=== PATIENT | female | born 1970 | race Hispanic/Latino ===

== ENCOUNTER 2018-11-02 14:46 | Emergency (ER) | payer OTHER ==
[~2018-11-02] VITALS: Ht 154.9 cm; Wt 68.0 kg
--- OUTSIDE RECORDS SUMMARY | 2018-11-02 14:48 | XMS REPORT | Clinical Summary ---
Author Author Enrique [facility] Organization [facility] Address Unknown Phone Unavailable Care Team Providers Care Sales And Training Specialist Name Role Phone Asked, No Pcp PCP Unavailable Allergies Comments Active Allergy Reactions Severity Noted Date Diphenhydramine Hcl 11/28/2017 Lisinopril 11/28/2017 Medications End Date Status Medication Sig Dispensed Refills Start Date Active methyldopa (ALDOMET) 250 Take 250 mg 0 MG tablet by mouth. Active labetalol (NORMODYNE) 200 Take 200 mg 0 MG tablet by mouth. Active triamterene-hydrochloroth Take 1 tablet 0 iazid (MAXZIDE-25) by mouth. 37.5-25 mg per tablet Active fluticasone (FLONASE) 50 1 spray into 0 mcg/actuation nasal spray each nostril. Active albuterol (PROAIR Take 2 puffs 0 HFA,PROVENTIL by mouth. 6 HFA,VENTOLIN HFA) 90 mcg/actuation inhaler Active azelastine (ASTELIN) 137 1 spray into 0 mcg (0.1 %) nasal spray each nostril. Active Problems Not on file Encounters Care Team Description Date Type Specialty Hattie Gonsalez MD Mixed stress and urge urinary incontinence (Primary Dx); Perimenopause; Cystocele, midline 11/28/2017 Office Visit Urogynecology after 11/01/2017 Family History Medical History Relation Name Comments No Known Problems Father No Known Problems Mother Relation Name Status Comments Father Alive Mother Alive Social History Date Tobacco Use Types Packs/Day Years Used Never Smoker Smokeless Tobacco: Never Used Drinks/Week oz/Week Comments Alcohol Use No Sex Assigned at Date Recorded Not on file Industry Job Start Date Occupation Not on file Not on file Not on file Travel End Travel History Travel Start No recent travel history available. Last Filed Vital Signs Reading Time Taken Comments Vital Sign 125/61 11/28/2017 10:28 AM CDT Blood Pressure 61 11/28/2017 10:28 AM CDT Pulse - - Temperature - - Respiratory Rate - - Oxygen Saturation - - Inhaled Oxygen Concentration 68 kg (150 lb) 11/28/2017 10:28 AM CDT Weight 154.9 cm (5' 1") 11/28/2017 10:28 AM CDT Height 28.34 11/28/2017 10:28 AM CDT Body Mass Index Plan of Treatment Health Maintenance Due Date Last Done Comments CERVICAL CANCER SCREENING 1990 INFLUENZA VACCINE 09/11/2018 11/01/2016, 02/22/2016, 11/03/2013 Procedures Comments Procedure Name Priority Date/Time Associated Diagnosis POC URINALYSIS DIPSTICK Routine 11/28/2017 Mixed stress and urge 10:59 AM CDT urinary incontinence MEASURE POST VOID Routine 11/28/2017 Mixed stress and urge RESIDUAL urinary incontinence after 11/01/2017 Results * POC urinalysis dipstick (11/28/2017 10:59 AM CDT) Color urine, Yellow POC Clarity urine, Clear POC Glucose urine, Negative Negative POC Bilirubin Negative Negative urine, POC Ketones urine, Negative Negative POC Specific >/=1.030 1.005 - 1.030 gravity urine, POC Blood urine, Moderate (A) Negative POC pH urine, POC 6.0 5.0, 5.5, 6.0, 6.5, 7.0, 7.5, 8.0, 8.5 Protein urine, Trace (A) Negative POC Urobilinogen <2.0 <2.0 urine, POC Nitrite urine, Negative Negative POC Leukocyte Negative Negative esterase urine, POC Specimen Urine * Measure post void residual (11/28/2017) Total volume, 0 ml urine Specimen after 11/01/2017 Insurance Type Payer Benefit Subscriber ID Effective Phone Address Plan / Dates Group HMO/PPO [facility] xxxxxxxxx [id number] THCARE resent CHOICE/CHO ICE + Advance Directives For more information, please contact: [phone] Patient Tools Administrator Explanation Type Date Recorded Advance Directives, Living Will and Medical Power of Hand Packer
--- OUTSIDE RECORDS SUMMARY | 2018-11-02 14:49 | XMS REPORT | Clinical Summary ---
Author Author KRISTOF[facility] Address Unknown Phone Unavailable Care Team Providers Care Keypunch Operators Supervisor Name Role Phone Vickie Montanez PCP Unavailable Allergies Comments Active Allergy Reactions Severity Noted Date numbness Diphenhydramine-Zinc Other (See 02/03/2014 Acetate Comments) cough Lisinopril Other (See 12/11/2017 Comments) Medications End Date Status Medication Sig Dispensed Refills Start Date Active methyldopa (ALDOMET) 250 Take 250 mg 0 MG tablet by mouth 3 (three) times daily. Active hydrOXYzine (VISTARIL) 25 Take 25 mg by 0 MG capsule mouth 3 (three) times daily as needed for Itching. Takes for anxiety Active labetalol (NORMODYNE) 200 Take 200 mg 0 MG tablet by mouth 2 (two) times daily. Active triamterene-hydrochloroth Take 1 tablet 0 iazide (MAXZIDE-25) by mouth 37.5-25 mg per tablet daily. Active fluticasone (FLONASE) 50 1 spray by 0 mcg/actuation nasal spray Nasal route daily. Active methocarbamol (ROBAXIN) Take 1-2 tab 30 tablet 0 500 MG tablet po q4 hours 6 prn pain/spasm. Active Problems Not on file Encounters Care Team Description Date Type Specialty Jovanni Calhoun DO Acute chest pain (Primary Dx); Essential hypertension; Hypokalemia; Dyspnea, unspecified type 12/11/2017 Emergency Emergency Medicine 12/11/2017 Orders Only General Internal Medicine 12/11/2017 Travel after 11/01/2017 Family History Medical History Relation Name Comments Unremarkable Father Unremarkable Mother Relation Name Status Comments Father Mother Social History Date Tobacco Use Types Packs/Day Years Used Never Smoker Alcohol Use Drinks/Week oz/Week Comments Yes occassionally Sex Assigned at Date Recorded Not on file Industry Job Start Date Occupation Not on file Not on file Not on file Travel End Travel History Travel Start No recent travel history available. Last Filed Vital Signs Time Taken Vital Sign Reading 12/11/2017 6:05 PM CDT Blood Pressure 131/68 12/11/2017 6:05 PM CDT Pulse 61 12/11/2017 2:46 PM CDT Temperature 36.7 C (98 F) 12/11/2017 6:05 PM CDT Respiratory Rate 16 12/11/2017 6:05 PM CDT Oxygen Saturation 95% - Inhaled Oxygen - Concentration 12/11/2017 2:46 PM CDT Weight 67.8 kg (149 lb 6 oz) - Height - 12/11/2017 2:46 PM CDT Body Mass Index 28.22 Plan of Treatment Not on file Procedures Comments Procedure Name Priority Date/Time Associated Diagnosis RHYTHM STRIP - SCAN 12/12/2017 2:01 PM CDT RAPID TROPONIN I STAT 12/11/2017 5:42 PM CDT RAPID CK-MB STAT 12/11/2017 5:42 PM CDT SCREEN, URINE STAT 12/11/2017 3:46 PM CDT ED ECG INTERPRETATION Routine 12/11/2017 3:13 PM CDT XR CHEST PA OR AP 1 VIEW STAT 12/11/2017 IN DEPT. 3:02 PM CDT CBC W/PLT COUNT & AUTO STAT 12/11/2017 DIFFERENTIAL 3:00 PM CDT D-DIMER STAT 12/11/2017 3:00 PM CDT CBC W/PLT COUNT & AUTO STAT 12/11/2017 DIFFERENTIAL 3:00 PM CDT RAPID TROPONIN I STAT 12/11/2017 2:59 PM CDT B-TYPE NATRIURETIC FACTOR STAT 12/11/2017 (BNP) 2:59 PM CDT RAPID CK-MB STAT 12/11/2017 2:59 PM CDT PT/APTT STAT 12/11/2017 2:59 PM CDT MAGNESIUM STAT 12/11/2017 2:59 PM CDT BASIC METABOLIC PANEL (7) STAT 12/11/2017 2:59 PM CDT ECG 12-LEAD Routine 12/11/2017 2:48 PM CDT Procedure Note - Interface, External Ris In - 12/11/2017 9:14 PM CDT Ventricula r Rate 69 BPM Atrial Rate 69 BPM P-R Interval 152 ms QRS Duration 90 ms Q-T Interval 420 ms QTC Calculatio n(Bazett) 450 ms P [place] 46 degrees R [place] 46 degrees T [place] 44 degrees Normal sinus rhythm Nonspecifi c T wave abnormalit y Abnormal ECG When compared with ECG of 6 02:48, Nonspecifi c T wave abnormalit y, worse in Anterior leads ECG 12-LEAD STAT 12/11/2017 2:48 PM CDT after 11/01/2017 Results * RHYTHM STRIP - SCAN (12/12/2017 2:01 PM CDT) Narrative Performed At * Rapid Troponin I ([facility] Only) (12/11/2017 5:42 PM CDT) Only the most recent of 2 results within the time period is included. Rapid Troponin I <0.05 <0.05 ng/mL [facility], [facility], [facility] Specimen Blood Performing Organization Address [facility] Phone Number [facility] [address] [place] [address] [facility], [facility] [place], [facility] * Rapid CK-MB ([facility] Only) (12/11/2017 5:42 PM CDT) Only the most recent of 2 results within the time period is included. Rapid CKMB 1.0 0.0 - 4.3 ng/mL [facility], [facility] [place], [facility] Specimen Blood Performing Organization Address [facility]/Zipcode Phone Number KRISTOFER OSWALD [address] [place] [address] [facility], [facility], [facility] * Screen, urine (12/11/2017 3:46 PM CDT) Preg Test, Ur Negative [facility] [place] Specimen Urine Performing Organization Address City/[facility] Phone Number KRISTOFER OSWALD [address] [place] [address] [facility], [facility] [place], [facility] * ECG/EKG Interpretation (12/11/2017 3:13 PM CDT) Narrative Performed At Jovanni Calhoun DO 12/11/20176:21 PM ECG/EKG Interpretation Date/Time: 12/11/2017 3:15 PM Performed by: Jovanni Calhoun DO Authorized by: Jovanni Calhoun DO The ECG was interpreted by ED physician. This ECG was not compared with previous ECG(s).The ECG is interpreted as sinus rhythm. Rate is normal rate. Heart rate is 69 BPM. Abnormal conduction noted: non-specific intraventricular conduction delay. [place] is normal. Clinical Impression: non-specific ECGECG reviewed and does not meet STEMI criteria. Patient tolerance: Patient tolerated the procedure well with no immediate complications * XR chest PA or AP 1 view in dept (12/11/2017 3:02 PM CDT) Specimen Narrative Performed At FINAL REPORT [facility] EXAM: Frontal chest radiograph HISTORY PROVIDED: Chest pain COMPARISON: 06/19/2015 IMPRESSION: The lungs are clear without focal consolidation. No pneumothorax or significant pleural fluid. The cardiomediastinal silhouette is within normal limits. No acute osseous abnormality. Signed: Hany Edwards MD Report Verified Date/Time:12/11/2017 15:28:29 Reading Location: [facility] Mammo Reading Room Procedure Note Interface, External Ris In - 12/11/2017 3:30 PM CDT FINAL REPORT EXAM: Frontal chest radiograph HISTORY PROVIDED: Chest pain COMPARISON: 06/19/2015 IMPRESSION: The lungs are clear without focal consolidation. No pneumothorax or significant pleural fluid. The cardiomediastinal silhouette is within normal limits. No acute osseous abnormality. Signed: Hany Edwards MD Report Verified Date/Time: 12/11/2017 15:28:29 Reading Location: [facility] Mammo Reading Room Performing Organization Address City/State/Zipcode Phone Number GE RIS * CBC with platelet count + automated diff (12/11/2017 3:00 PM CDT) WBC 6.9 4.0 - 10.0 K/L [facility], [facility] [place], [facility] RBC 4.01 4.00 - 5.00 M/L [facility], [facility] Hemoglobin 12.6 12.0 - 15.0 GM/DL [facility], [facility] Hematocrit 36.8 36.0 - 45.0 % [facility] [place] MCV 91.9 82.0 - 99.0 fL [facility] [place] MCH 31.4 27.0 - 33.0 pg [facility] [place] MCHC 34.2 32.0 - 36.0 GM/DL [facility] [place] RDW 11.7 10.3 - 14.2 % [facility] [place] Platelets 293 150 - 430 K/CU MM [facility], [facility] MPV 8.2 6.5 - 10.5 fL [facility] [place] % Neutros 60 % [facility] % Lymphs 30 % [facility] % Monos 6 % [facility], [facility] [place] % Eos 3 % [facility], [facility] [place] % Baso 1 % [facility], [facility] [place], [facility] # Neutros 4.12 1.80 - 8.00 K/L [facility], [facility], [facility] # Lymphs 2.08 1.48 - 4.50 K/L [facility], [facility] [place], [facility] # Monos 0.44 0.00 - 1.30 K/L [facility], [facility] [place], [facility] # Eos 0.21 0.00 - 0.50 K/L [facility], [facility] [place], [facility] # Baso 0.03 0.00 - 0.20 K/L [facility], [facility] [place], [facility] Specimen Blood Performing Organization Address [facility] Cent[facility]ode Phone Number [place] [phone] [facility] [place], [facility] * D-dimer, quantitative (12/11/2017 3:00 PM CDT) D-Dimer, Quant <0.19 <0.50 MG/L FEU [facility], [facility] [place], [facility] Specimen Blood Narrative Performed At REGARDING D-DIMER RESULTS: Results of this D-Dimer test should always be [facility] interpreted in conjunction with the patient's medical history, clinical [facility] MEDICAL presentation and other findings. DVT clinical diagnosis should not be based on [place] the results of [facility] D-Dimer alone. [facility] [place] Performing Organization Address City/[facility] Cent[facility]ode Phone Number [address] [address] [facility], [facility] [place], [facility] * PT/PTT (12/11/2017 2:59 PM CDT) Protime 10.7 9.8 - 12.0 seconds [facility] [place] INR 1.0 <=5.9 [facility] PTT 25.1 (L) 25.8 - 34.5 seconds [facility] Specimen Blood Narrative Performed At RECOMMENDED COUMADIN/WARFARIN INR THERAPY RANGES [facility] STANDARD DOSE: 2.0 - 3.0 Includes: PROPHYLAXIS for venous thrombosis, [facility] systemic embolization; TREATMENT for venous thrombosis and/or pulmonary embolus. [facility] HIGH RISK: Target INR is 2.5-3.5 for patients with mechanical heart valves. EMERGENCY CENTER, [facility] Performing Organization Address [facility] Phone Number [address] [address] [facility] [place] * B-type Natriuretic Factor (BNP) (12/11/2017 2:59 PM CDT) BNP <5 0 - 100 pg/mL [facility] Specimen Blood Performing Organization Address [facility] Phone Number [address] [address] [facility] [place] * Magnesium (12/11/2017 2:59 PM CDT) Magnesium 2.1 1.5 - 3.0 mg/dL [facility] [place] Specimen Blood Performing Organization Address [facility] Phone Number [address] [address] [facility], [facility] [place], [facility] * Basic Metabolic Panel (12/11/2017 2:59 PM CDT) Sodium 141 135 - 148 meq/L [facility], [facility] [place] Potassium 3.3 (L) 3.6 - 5.5 meq/L [facility] Chloride 100 98 - 106 meq/L [facility] CO2 29 24 - 32 meq/L [facility], [facility], [facility] BUN 15 10 - 26 mg/dL [facility] Creatinine 0.65 0.50 - 1.20 mg/dL [facility] Glucose 119 (H) 70 - 110 mg/dL [facility] Calcium 9.3 8.5 - 10.5 mg/dL [facility], [facility] [place] EGFR 97Comment: ESTIMATED GFR IS mL/min/1.73 sq m [facility] NOT ACCURATE CREATININE [facility] CLEARANCE IN [facility] GLOMERULAR FILTRATION RATE. EMERGENCY CENTER, ESTIMATED GFR IS NOT [facility] APPLICABLE FOR DIALYSIS PATIENTS. Specimen Blood Performing Organization Address City/State/Zipcode Phone Number [facility] [address] [place] [address] [facility] [place] * ECG 12 lead (12/11/2017 2:48 PM CDT) Specimen Narrative Performed At Ventricular Rate 69 BPM GE MUSE Atrial Rate 69 BPM P-R Interval 152 ms QRS Duration 90 ms Q-T Interval 420 ms QTC Calculation(Bazett) 450 ms P [place] 46 degrees R [place] 46 degrees T [place] 44 degrees Normal sinus rhythm Nonspecific T wave abnormality Abnormal ECG When compared with ECG of 19-JUN-2015 02:48, Nonspecific T wave abnormality, worse in Anterior leads Confirmed by MD JASON, KEYONNA Lucas ([id number]) on 12/12/2017 6:19:41 AM Procedure Note Interface, External Ris In - 12/12/2017 6:19 AM CDT Ventricular Rate 69 BPM Atrial Rate 69 BPM P-R Interval 152 ms QRS Duration 90 ms Q-T Interval 420 ms QTC Calculation(Bazett) 450 ms P [place] 46 degrees R [place] 46 degrees T [place] 44 degrees Normal sinus rhythm Nonspecific T wave abnormality Abnormal ECG When compared with ECG of 19-JUN-2015 02:48, Nonspecific T wave abnormality, worse in Anterior leads Confirmed by MD JASON, KEYONNA Lucas ([id number]) on 12/12/2017 6:19:41 AM Performing Organization Address City/State/Zipcode Phone Number GE MUSE after 11/01/2017 Insurance Payer Benefit Subscriber ID Type Phone Address Plan / Group [facility] H[facility]/POS CARE POS SELECT CHOICE
--- OUTSIDE RECORDS SUMMARY | 2018-11-02 14:49 | XMS REPORT | Summary of Care ---
Author Author [facility] Organization [facility] Address Unknown Phone Unavailable Care Team Providers Care Ice Maker Name Role Phone Rosalina Hutchinson MD PCP Reason for Visit * Reason Comments Pharyngitis Since Saturday Cough Encounter Details Care Team Description Date Type Department Desirae Salcido MD [address] [facility] [address] [place] [address] Pharyngitis (Since Saturday ); Cough 10/16/2018 Office Visit [facility] [address] [place] [address] Allergies Comments Active Allergy Reactions Severity Noted Date Allergy Relief 07/26/2014 cough Lisinopril 11/28/2015 documented as of this encounter (statuses as of 10/16/2018) Medications End Date Status Medication Sig Dispensed Refills Start Date Active azelastine (ASTELIN) 0.1 1 [place] by 0 % nasal spray Nasal route two times daily. Use in each nostril as directed Active triamterene-hydrochloroth TAKE 1 TABLET 90 Tab 3 iazide (MAXZIDE) 37.5-25 BY MOUTH 9 MG per tabletIndications: EVERY DAY Essential hypertension, benign Active labetalol (NORMODYNE) 200 TAKE 1 TABLET 180 Tab 1 MG tabletIndications: BY MOUTH 9 Essential hypertension TWICE DAILY Active albuterol 108 (90 base) Inhale 2 1 Inhaler 1 mcg/act Puffs by 9 inhalerIndications: Mild mouth every 4 intermittent asthma with hours as acute exacerbation needed for Wheezing. Active guaiFENesin-Codeine Take 10 mL by 180 mL 1 (GUAIFENESIN AC) 100-10 mouth 4 times 9 MG/5ML liquidIndications: daily as Viral URI with cough needed for Cough. 10/23/2018 Active amoxicillin (AMOXIL) 875 Take 1 Tab by 14 Tab 0 MG tabletIndications: mouth two 9 Viral URI with cough times daily for 7 days. 10/16/2018 Discontinued triamterene-hydrochloroth TAKE 1 TABLET 90 Tab 0 iazide (MAXZIDE) 37.5-25 BY MOUTH 8 MG per tablet EVERY DAY 10/16/2018 Discontinued labetalol (NORMODYNE) 200 TAKE 1 TABLET 180 Tab 0 MG tablet BY MOUTH 8 TWICE DAILY documented as of this encounter (statuses as of 10/16/2018) Active Problems Problem Noted Date Kidney stone 04/25/2018 NAFLD (nonalcoholic fatty liver disease) 01/28/2018 Urinary urgency 10/25/2017 Other fatigue 10/25/2017 Daytime sleepiness 12/22/2016 Last Assessment & Plan: Counseled on sleepiness, strategic naps and safety Non-restorative sleep 12/22/2016 Last Assessment & Plan: Benign paroxysmal positional vertigo 11/13/2016 Ear pressure, bilateral 11/13/2016 Overweight 11/10/2016 Last Assessment & Plan: Counseled on wt loss Sleep-disordered breathing 11/10/2016 Last Assessment & Plan: Pt with non diagnostic HST with obesity , hyepertension, daytime sleepiness, non restorative sleep Discussed with patient the pathophysiology of sleep apnea, and treatment options Pt not able to afford copay for sleep study would like to defer Advised inc hours of sleep, strategic naps, also wt loss Snoring 11/01/2016 Asthma due to seasonal allergies 12/16/2015 Prediabetes 12/14/2015 Overview: Couldn't tolerate Metformin, quit taking it 01/2016. History of gestational hypertension 09/23/2015 Stress at home 09/23/2015 Overview: Sees counselor regularly Nose obstruction 01/03/2013 Nasal septal deviation 11/11/2011 DISORDER, ANTERIOR PITUITARY NEC 09/22/2007 ASCUS PAP 08/21/2006 Overview: Normal paps since 2009 with negative HPV HYPERTENSION, ESSENTIAL 11/21/2004 documented as of this encounter (statuses as of 10/16/2018) Resolved Problems Problem Noted Date Resolved Date Allergic rhinitis, cause unspecified 11/11/2011 12/05/2011 Menses regular with excessive bleeding 05/24/2010 12/05/2011 examination or test, negative result 05/23/2010 12/05/2011 Vaginal discharge 01/16/2010 12/05/2011 Yeast infection involving the vagina and surrounding area 01/09/2010 12/05/2011 Gallstones 12/13/2009 05/18/2010 PELVIC PAIN 09/22/2007 04/20/2009 FAMILY HISTORY OF HEART DISEASE--MGF, MGM 09/16/2006 12/05/2011 FAMILY HISTORY OF STROKE--MGF 09/16/2006 12/05/2011 FAMILY HISTORY OF DIABETES--MGF, AUNT 09/16/2006 12/05/2011 COUGH, UNDIAGNOSED, CAUSE UNCLEAR 09/16/2006 04/20/2009 Female infertility 07/09/2006 12/05/2011 CHEST PAIN, ATYPICAL 06/19/2006 04/20/2009 HYPERCHOLESTEROLEMIA--LDL 145 HDL 49 TG 107 06/19/2006 12/05/2011 Bradycardia 06/19/2006 12/05/2011 ANXIETY STATE NOS 06/19/2006 04/20/2009 FAMILY HISTORY OF HYPERTENSION: 12/05/2011 documented as of this encounter (statuses as of 10/16/2018) Immunizations Name Administration Dates Next Due Influenza Quad-PF 11/01/2016 Influenza Quadrivalent 02/22/2016 3YRS+ Tdap 09/08/2013 documented as of this encounter Social History Date Tobacco Use Types Packs/Day Years Used Never Smoker Smokeless Tobacco: Never Used Drinks/Week oz/Week Comments Alcohol Use 0.0 Alcoholic Drinks/day: Socially Yes Sex Assigned at Date Recorded Not on file Industry Job Start Date Occupation Not on file Not on file Not on file Travel End Travel History Travel Start No recent travel history available. documented as of this encounter Last Filed Vital Signs Reading Time Taken Comments Vital Sign 135/90 10/16/2018 2:11 PM CDT Blood Pressure 81 10/16/2018 2:11 PM CDT Pulse 36.9 C (98.5 F) 10/16/2018 2:11 PM CDT Temperature 16 10/16/2018 2:11 PM CDT Respiratory Rate 96% 10/16/2018 2:11 PM CDT Oxygen Saturation - - Inhaled Oxygen Concentration 68.1 kg (150 lb 3.2 oz) 10/16/2018 2:11 PM CDT Weight 154.9 cm (5' 1") 10/16/2018 2:11 PM CDT Height 28.38 10/16/2018 2:11 PM CDT Body Mass Index documented in this encounter Patient Instructions * Patient Instructions* Desirae Salcido MD - 10/16/2018 1:50 PM CDT Prescription cough medicine: CHERATUSSIN (guaifenesin with codeine) Take one (1) teaspoon by mouth every 4 -6 hours for cough: DO NOT DRIVE WHILE US ING THIS MEDICINE This medicine can cause sedation, nausea and constipation. Make sure that you m easure each dose (don't drink it out of the bottle) and keep it in a safe place. IT IS A NARCOTIC (OPIOID). Do not leave it where children can find it. It is best tolerated if taken with a light snack. Don't take this with anything el se that can cause sedation (such as prescription pain relievers, anxiety medicin e, alcohol, muscle relaxants). Please use the inhaler as needed for cough or shortness of breath or wheeze. Hold the antibiotics and fill only if you have thick discolored mucus that is no t getting better. documented in this encounter Progress Notes * Desirae Salcdio MD - 10/16/2018 1:50 PM CDT Assessment and Plan Yessi was seen today for pharyngitis and cough. Diagnoses and all orders for this visit: Viral URI with cough - guaiFENesin-Codeine (GUAIFENESIN AC) 100-10 MG/5ML liquid; Take 10 mL by m outh 4 times daily as needed for Cough. HOLD RX AND FILL ONLY IF NEEDED (PERSISTENT thick discolored mucus ETC) - amoxicillin (AMOXIL) 875 MG tablet; Take 1 Tab by mouth two times daily fo r 7 days. Mild intermittent asthma with acute exacerbation - albuterol 108 (90 base) mcg/act inhaler; Inhale 2 Puffs by mouth every 4 h ours as needed for Wheezing. === Chief Complaint Patient presents with Pharyngitis Since Saturday Cough URI sx since 10.13.19 Has been using dagu-euh-fvoffme cough and cold meds with minmal improvement in s ymptoms \\ Hx asthma but no current use of beta agonist etc Dry cough, chills. Coricidin HBP helped the cough a bit Nose running despite the meds Everyone at home is ill Other sx include: chills, night sweats, nasal congestion, sore throat, cough, wh eezing , malaise DENIES: chest pain, hemoptysis, dyspnea , body aches Allergies Allergen Reactions Benadryl [Allergy Relief] Lisinopril cough albuterol 108 (90 base) mcg/act inhaler Inhale 2 Puffs by mouth every 4 hour s as needed for Wheezing. amoxicillin (AMOXIL) 875 MG tablet Take 1 Tab by mouth two times daily for 7 days. azelastine (ASTELIN) 0.1 % nasal spray 1 [place] by Nasal route two times marlon y. Use in each nostril as directed guaiFENesin-Codeine (GUAIFENESIN AC) 100-10 MG/5ML liquid Take 10 mL by mout h 4 times daily as needed for Cough. labetalol (NORMODYNE) 200 MG tablet TAKE 1 TABLET BY MOUTH TWICE DAILY triamterene-hydrochlorothiazide (MAXZIDE) 37.5-25 MG per tablet TAKE 1 TABLE T BY MOUTH EVERY DAY Physical Exam BP 135/90 | Pulse 81 | Temp 98.5 F (36.9 C) (Oral) | Resp 16 | Ht 5' 1" (1.549 m) | Wt 150 lb 3.2 oz (68.1 kg) | SpO2 96% | BMI 28.38 kg/m Body mass index is 28.38 kg/m. General: 48 y.o. female in no acute distress. HEENT: NCAT, EOMI, hearing intact, mouth - mucus membranes moist Nasal congestipon Skin of nares chapped and red Neck: Supple without lymphadenopathy CV: RR without murmur RESP: Normal respiratory rate. Normal resonance to percussion. Good air movement bilaterally Clear to auscultation w quiet breathing but end exp wheezes and dry cough on f orced exp Neuro: nonfocal Extremities: No edema documented in this encounter Plan of Treatment Health Maintenance Due Date Last Done Comments HIV SCREENING 06/18/1987 FLU VACCINE > 6 MONTHS 09/11/2018 04/25/2018 (Declined), 12/16/2017 (Declined), 11/01/2016, Additional history exists BMI FOLLOW UP PLAN 10/25/2018 10/25/2017 MAMMOGRAM EVERY 2 YEARS 04/21/2020 04/21/2018, 10/12/2016, 01/13/2015, Additional history exists CERVICAL CANCER SCREENING 02/11/2022 02/11/2017, 01/16/2010, 12/14/2008 5 YEAR FOLLOW UP TETANUS SHOT (ADULT) 03/14/2025 03/14/2015, 09/08/2013 documented as of this encounter Results Not on filedocumented in this encounter Visit Diagnoses Diagnosis Viral URI with cough - Primary Acute upper respiratory infections of unspecified site Mild intermittent asthma with acute exacerbation Unspecified asthma, with exacerbation documented in this encounter Insurance Type Payer Benefit Subscriber ID Effective Phone Address Plan / Dates Group PPO [facility] CHOICE/CHO xxxxxxxxx 2018-P [address] [place] [id number] PLUS/[facility] [id number] documented as of this encounter Advance Directives Patient Butcher Or Smallgoods Maker Explanation Type Date Recorded Advance Directives and Living Will Power of Director Of Business Operations
--- OUTSIDE RECORDS SUMMARY | 2018-11-02 14:49 | XMS REPORT ---
Author Author [facility] Address Unknown Phone Unavailable Care Team Providers Care Revenue Stamp Cutter Name Role Phone CARLITOS CALHOUN Unavailable Unavailable Problems This patient has no known problems. Allergies, Adverse Reactions, Alerts This patient has no known allergies or adverse reactions. Medications This patient has no known medications. Results Test Description Test Time Test Comments Text Results Atomic Results Result Comments RAPID CK-MB 2017-12-11 18:09:00 RAPID CKMB (BEAKER) (test jhxn=1384) 1.0 ng/mL 0.0-4.3 RAPID TROPONIN [id number] 18:09:00* Test Item Value Reference Range Comments RAPID TROPONIN I (BEAKER) (test uegt=8596) < ng/mL <0.05 SCREEN, [id number] 15:59:00* Test Item Value Reference Range Comments TEST URINE (BEAKER) (test nnum=123) Negative RAD, CHEST, PA OR AP, 1 [id number] 15:28:00Reason for exam:->chest painIs the patient ?->UnknownShould this be performed at the bedside?->NoFINAL REPORT EXAM: Frontal chest radiograph HISTORY PROVIDED: Chest pain COMPARISON: 06/19/2015 IMPRESSION:The lungs are clear without focal consolidation. No pneumothorax or significant pleural fluid. The cardiomediast inal silhouette is within normal limits. No acute osseous abnormality. Signed: Hany Scruggseport Verified Date/Time: 12/11/2017 15:28:29 Reading Loca tion: [facility] Mammo Reading Room [id number] 15:27:00* Test Item Value Reference Range Comments D-DIMER QUANTITATIVE (BEAKER) (test vumx=663) < MG/L FEU <0.50 REGARDING D-DIMER RESULTS: Results of this D-Dimer test should always be interpr eted in conjunction with the patient's medical history, clinical presentation an d other findings. DVT clinical diagnosis should not be based on the results of I NNOVANCE D-Dimer alone.RAPID TROPONIN [id number] 15:26:00* Test Item Value Reference Range Comments RAPID TROPONIN I (BEAKER) (test lhhu=3446) < ng/mL <0.05 B-TYPE NATRIURETIC FACTOR (BNP)2017-12-11 15:25:00* Test Item Value Reference Range Comments B-TYPE NATRIURETIC PEPTIDE (BEAKER) (test bpbv=234) < pg/mL 0-100 RAPID [id number] 15:25:00* Test Item Value Reference Range Comments RAPID CKMB (BEAKER) (test havm=4879) < ng/mL 0.0-4.3 [id number] 15:20:00* Test Item Value Reference Range Comments PROTIME (BEAKER) (test behe=128) 10.7 seconds 9.8-12.0 INR (BEAKER) (test pytc=078) 1.0 <=5.9 PARTIAL THROMBOPLASTIN TIME (BEAKER) (test uyac=020) 25.1 seconds 25.8-34.5 RECOMMENDED COUMADIN/WARFARIN INR THERAPY RANGESSTANDARD DOSE: 2.0 - 3.0 Inclu jigar: PROPHYLAXIS for venous thrombosis, systemic embolization; TREATMENT for meagan ous thrombosis and/or pulmonary embolus.HIGH RISK: Target INR is 2.5-3.5 for pat ients with mechanical heart valves.[id number] 15:16:00* Test Item Value Reference Range Comments MAGNESIUM (BEAKER) (test rzba=097) 2.1 mg/dL 1.5-3.0 BASIC METABOLIC [id number] 15:16:00* Test Item Value Reference Range Comments SODIUM (BEAKER) (test gaiv=417) 141 meq/L 135-148 POTASSIUM (BEAKER) (test bqzl=167) 3.3 meq/L 3.6-5.5 CHLORIDE (BEAKER) (test dvkn=056) 100 meq/L 98-106 CO2 (BEAKER) (test npfz=512) 29 meq/L 24-32 BLOOD UREA NITROGEN (BEAKER) (test iimu=300) 15 mg/dL 10-26 CREATININE (BEAKER) (test kdpk=644) 0.65 mg/dL 0.50-1.20 GLUCOSE RANDOM (BEAKER) (test phdb=731) 119 mg/dL 70-110 CALCIUM (BEAKER) (test rtyc=381) 9.3 mg/dL 8.5-10.5 EGFR (BEAKER) (test xbyy=8696) 97 mL/min/1.73 sq m ESTIMATED GFR IS NOT ACCURATE CREATININE CLEARANCE IN PREDICTING GLOMERULAR FILTRATION RATE. ESTIMATED GFR IS NOT APPLICABLE FOR DIALYSIS PATIENTS. CBC W/PLT COUNT & AUTO [id number] 15:12:00* Test Item Value Reference Range Comments WHITE BLOOD CELL COUNT (BEAKER) (test dncm=280) 6.9 K/ L 4.0-10.0 RED BLOOD CELL COUNT (BEAKER) (test fbrf=493) 4.01 M/ L 4.00-5.00 HEMOGLOBIN (BEAKER) (test mdse=971) 12.6 GM/DL 12.0-15.0 HEMATOCRIT (BEAKER) (test zooz=158) 36.8 % 36.0-45.0 MEAN CORPUSCULAR VOLUME (BEAKER) (test kboa=364) 91.9 fL 82.0-99.0 MEAN CORPUSCULAR HEMOGLOBIN (BEAKER) (test sozq=241) 31.4 pg 27.0-33.0 MEAN CORPUSCULAR HEMOGLOBIN CONC (BEAKER) (test oafk=636) 34.2 GM/DL 32.0-36.0 RED CELL DISTRIBUTION WIDTH (BEAKER) (test bnzn=805) 11.7 % 10.3-14.2 PLATELET COUNT (BEAKER) (test rwns=984) 293 K/CU MM 150-430 MEAN PLATELET VOLUME (BEAKER) (test szpq=904) 8.2 fL 6.5-10.5 NEUTROPHILS RELATIVE PERCENT (BEAKER) (test wchd=174) 60 % LYMPHOCYTES RELATIVE PERCENT (BEAKER) (test wden=369) 30 % MONOCYTES RELATIVE PERCENT (BEAKER) (test fddy=055) 6 % EOSINOPHILS RELATIVE PERCENT (BEAKER) (test fsnt=631) 3 % BASOPHILS RELATIVE PERCENT (BEAKER) (test kxiq=417) 1 % NEUTROPHILS ABSOLUTE COUNT (BEAKER) (test blrn=733) 4.12 K/ L 1.80-8.00 LYMPHOCYTES ABSOLUTE COUNT (BEAKER) (test icjh=264) 2.08 K/ L 1.48-4.50 MONOCYTES ABSOLUTE COUNT (BEAKER) (test dccl=531) 0.44 K/ L 0.00-1.30 EOSINOPHILS ABSOLUTE COUNT (BEAKER) (test fwbn=781) 0.21 K/ L 0.00-0.50 BASOPHILS ABSOLUTE COUNT (BEAKER) (test ehso=854) 0.03 K/ L 0.00-0.20
--- NOTE | 2018-11-02 16:08 | NUR ---
US AT BEDSIDE
--- NOTE | 2018-11-02 17:03 | Diagnostic Imaging Report ---
EXAMINATION: Transabdominal pelvic ultrasound. CLINICAL INDICATION: Heavy menses COMPARISON: None available DISCUSSION: Transverse and sagittal transabdominal images were obtained of the pelvis. The patient declined transvaginal imaging. The uterus is neutral in position and normal in size measuring 10.5 x 5.1 x 6.1 cm. The endometrial stripe is homogeneous, normal in thickness and measures 0.4 centimeters. A 2.8 cm hypoechoic lesion is identified posteriorly compatible with a fibroid. The ovaries are normal in size and echogenicity. The right ovary measures 3.6 x 1.9 x 2.5 centimeters. The left ovary measures 5.8 x 2.8 x 4.8 cm, and contains a dominant follicle or simple cyst measuring 2.3 centimeters. No free fluid or pelvic masses are seen. IMPRESSION: 2.8 cm uterine fibroid. Otherwise unremarkable transabdominal pelvic ultrasound. Signed by: Dr. Lc Osman M.D. on 11/02/2018 5:00 PM
[2018-11-02 17:10] VITALS: BP 157/87
== END 2018-11-02 17:13 | disposition home or self-care (01) ==
LOC: FSED 14:46
DX: N92.4 Excessive bleeding in the premenopausal period (principal); R10.2 Pelvic and perineal pain; D25.9 Leiomyoma of uterus, unspecified
CPT/HCPCS: 76857; 80053; 81003; 81025; 85025; 99284

== ENCOUNTER 2018-11-12 21:05 | Emergency (ER) | payer OTHER ==
[~2018-11-12] VITALS: Ht 154.9 cm; Wt 66.7 kg
[2018-11-12] MEDS ORDERED: LORAZEPAM INJ 2 MG/ML VIAL IV ONE (21:30)
[2018-11-12] MEDS ORDERED: XANAX0.25 MG PO (22:04)
[2018-11-12] MEDS ORDERED: POTASSIUM CHLORIDE 20 MEQ TAB CR PO STA (22:08)
[2018-11-12] MEDS ORDERED: POTASSIUM CHLORIDE 20 MEQ TAB CR PO ONE (22:18)
[2018-11-12 22:44] VITALS: BP 156/86
--- NOTE | 2018-11-12 23:36 | Diagnostic Imaging Report ---
EXAMINATION: CXR 2 VIEW - HOPD INDICATION: High blood pressure COMPARISON: None FINDINGS: TUBES and LINES: None. LUNGS: Lungs are well inflated. Lungs are clear. There is no evidence of pneumonia or pulmonary edema. PLEURA: No pleural effusion or pneumothorax. HEART AND MEDIASTINUM: The cardiomediastinal silhouette is unremarkable. BONES AND SOFT TISSUES: No acute osseous lesion. Soft tissues are unremarkable. UPPER ABDOMEN: No free air under the diaphragm. IMPRESSION: No acute thoracic radiographic abnormality. Signed by: Con Whitehead DO on 11/12/2018 11:33 PM
== END 2018-11-12 22:30 | disposition home or self-care (01) ==
LOC: FSED 21:05
DX: I10 Essential (primary) hypertension (principal); R51 Headache; F41.1 Generalized anxiety disorder
CPT/HCPCS: 71046; 93005; 96374; 99284; J2060